=== PATIENT | male | born 1970 | race Caucasian/White ===

== ENCOUNTER 2018-12-13 21:09 | Emergency (ER) | payer MEDICAID, OTHER ==
[~2018-12-13] VITALS: Ht 188 cm; Wt 103.6 kg
[~2018-12-13 21:09] MED LIST: ALLO300T80 PO; BALS750C14 PO; BUDE9TAB PO; DIVA250T4 PO; ENOX100S5 SQ; ENOX80SY5 SQ; MESA800T2 PO; PRED10TA PO; RIVA15TA PO; RIVA20TA PO; WARF5TAB PO
[2018-12-13 23:29] VITALS: BP 141/91
--- NOTE | 2018-12-13 23:29 | NUR ---
pt d/c with d/c summary. all questions answered. pt ambulates to registration desk with steady gait for d/c home. pt denies any other needs pertaining to this visit.
== END 2018-12-13 23:31 | disposition home or self-care (01) ==
LOC: ED 22:01
DX: S67.196A Crushing injury of right little finger, initial encounter (principal); G40.909 Epilepsy, unspecified, not intractable, without status epilepticus; W31.89XA Contact with other specified machinery, initial encounter; Y93.89 Activity, other specified; Y92.009 Unspecified place in unspecified non-institutional (private) residence as the place of occurrence of the external cause; Y99.8 Other external cause status
CPT/HCPCS: 99283

== ENCOUNTER → 2020-10-27 | Outpatient (CLI) | payer OTHER ==
[~2020-10-27] MED LIST changes: -WARF5TAB PO; +WARF5TAB2 PO
== END | disposition home or self-care (01) ==
LOC: CFH 13:45
PROVIDERS: ATTEND Internal Medicine Cardiovascular Disease
DX: I37.1 Nonrheumatic pulmonary valve insufficiency (principal); I11.9 Hypertensive heart disease without heart failure; R06.02 Shortness of breath
CPT/HCPCS: 93306